=== PATIENT | male | born 1995 | race Caucasian/White ===

== ENCOUNTER 2019-05-01 10:55 | Emergency (ER) | payer SELFPAY ==
[~2019-05-01] VITALS: Ht 165.1 cm; Wt 65.9 kg
[2019-05-01] MEDS ORDERED: ETOMIDATE 2 MG/ML 10 ML VIAL IVP ONE (11:15)
[2019-05-01] MEDS: OXYGEN THERAPY IH SCH ×2 (11:35→12:20)
[2019-05-01] MEDS ORDERED: ACETAMINOPHEN/CODEINE 300-30 MG TABLET PO ONE (11:45)
[2019-05-01] MEDS ORDERED: KETOROLAC TROMETHAMINE 30 MG/ML VIAL IVP ONE (11:45)
[2019-05-01 13:04] VITALS: BP 125/80
== END 2019-05-01 13:20 | disposition home or self-care (01) ==
LOC: EMS 10:55
DX: S43.004A Unspecified dislocation of right shoulder joint, initial encounter (principal); X58.XXXA Exposure to other specified factors, initial encounter; Y93.89 Activity, other specified; Y92.89 Other specified places as the place of occurrence of the external cause; Y99.8 Other external cause status
CPT/HCPCS: 23650; 73030; 96374; 99152; 99285; J1885; J3490